=== PATIENT | female | born 1945 | race Caucasian/White ===

== ENCOUNTER 2016-10-23 06:56 | Day surgery (SDC) | payer OTHER ==
[~2016-10-23] VITALS: Ht 149.9 cm; Wt 58.9 kg
[~2016-10-23 06:56] MED LIST: ARICEPT5 MG PO; CENTRUM SILVER1 EAC4 PO; GLUCOPHAGE1000 MG PO; GLUCOTROL10 MG PO; MICROZIDE12.5 M1 PO; PRILOSEC20 MG PO; RANITIDINE HCL150 MG PO; VASOTEC20 MG PO; ZOLOFT50 MG PO
[2016-10-23 07:26] VITALS: BP 207/97
[2016-10-23 07:36] LABS: POINT-OF-CARE METER ID UU14174212
[2016-10-23 08:03] VITALS: BP 176/91
[2016-10-23 10:35] VITALS: BP 193/76
[2016-10-23 11:35] VITALS: BP 161/72
== END 2016-10-23 11:55 | disposition home or self-care (01) ==
LOC: SDC 06:56
PROVIDERS: Ophthalmology
DX: H43.11 Vitreous hemorrhage, right eye (principal); H35.371 Puckering of macula, right eye; H35.341 Macular cyst, hole, or pseudohole, right eye; E11.319 Type 2 diabetes mellitus with unspecified diabetic retinopathy without macular edema; I10 Essential (primary) hypertension; K21.9 Gastro-esophageal reflux disease without esophagitis
CPT/HCPCS: 82948; J0690; J1100; J2250; J2795; J3010; J3300